=== PATIENT | female | born 1985 | race Caucasian/White ===

== ENCOUNTER 2020-07-24 06:16 | Inpatient (IN) | payer OTHER ==
[~2020-07-24] VITALS: Ht 154.9 cm; Wt 86.6 kg
[~2020-07-24 06:16] MED LIST: Anaprox Ds 550mg TAB PO; Colace 100MG PO; PRENATE ADVANCE PO
[2020-07-24] MEDS ORDERED: SYNTHROID50 MCG PO (07:36)
[2020-07-24] MEDS ORDERED: HEMATRON PO (07:36)
[2020-07-26] MEDS ORDERED: PREPLUS CA-FE1 EACH PO (11:31)
[2020-07-26] MEDS ORDERED: DOCUSATE SODIU100 MG PO (11:31)
[2020-07-26] MEDS ORDERED: IBUPROFEN400 MG PO (11:31)
== END 2020-07-26 13:47 | disposition home or self-care (01) | DRG 807 ==
LOC: LDR 06:16 → OB/GYN 11:23
PROVIDERS: ADMIT Obstetrics & Gynecology; ATTEND Obstetrics & Gynecology
PROC: 10E0XZZ Delivery of Products of Conception, External Approach (ICD-10-PCS; principal; 2020-07-24)
PROC: 10907ZC Drainage of Amniotic Fluid, Therapeutic from Products of Conception, Via Natural or Artificial Opening (ICD-10-PCS; 2020-07-24)
PROC: 3E0P7VZ Introduction of Hormone into Female Reproductive, Via Natural or Artificial Opening (ICD-10-PCS; 2020-07-24)
PROC: 4A1HXFZ Monitoring of Products of Conception, Cardiac Rhythm, External Approach (ICD-10-PCS; 2020-07-24)
DX: O48.0 Post-term pregnancy (principal); Z37.0 Single live birth; O70.0 First degree perineal laceration during delivery; Z3A.40 40 weeks gestation of pregnancy; Z20.822 Contact with and (suspected) exposure to COVID-19